=== PATIENT | male | born 1980 | race Caucasian/White ===

== ENCOUNTER 2017-09-10 08:28 | Emergency (ER) | payer MEDICAID, SELFPAY ==
[2017-09-10 08:34] VITALS: BP 113/71; PULSE 125; RESP 14; TEMP 36.9; O2SAT 99; BMI 31.8
--- NOTE | 2017-09-10 10:24 | HMH.EDGENADL ---
ED Disposition Clinical Impression: Injury of biceps brachii muscle Disposition: Home, Self-Care Condition on Discharge: Good Instructions: DI for Acute Pain -- Adult Referrals: Rohith Pereira MD [Primary Care Provider] - - Critical Care Critical Care Time: No Attestation: On 09/10/17, the high probability of a clinically significant, sudden or life threatening deterioration of the following system(s) required my full and direct attention, intervention and personal management. The time I documented below is in addition to time spent performing reported procedures but includes the following listed in this critical care notation. Medical Decision Making Vital Signs: 09/10/17 08:34 Temperature 98.5 F Temperature Source Oral Pulse Rate [Left Brachial] 125 H Respiratory Rate 14 Blood Pressure [Left Arm] 113/71 Blood Pressure Mean [Left Arm] 85 Blood Pressure Source [Left Arm] Automatic Cuff Blood Pressure Position [Left Arm] Sitting 02 Sat by Pulse Oximetry 99 Oxygen Delivery Method Room Air Orders (Tests/Meds): ED MEDICATIONS Discontinued Medications Generic Name Dose Route Start Last Admin Trade Name Freq PRN Reason Stop Dose Admin Ketorolac Tromethamine 60 mg 09/10/17 10:42 Toradol 60mg/2ml Vial IM 09/10/17 10:43 ONCE ONE - Rogelio Inquiry Pt receiving controlled substance: No (patient requested, I declined) Rogelio was queried for this patient: No Medical Decision Making Narrative: Toradol given, with little relief. Note he is NOT allergic to Toradol as he had x3 on without rash. He says he will returjn for Dr rashard anguiano. Declined muscle relaxer. General Adult HPI - General Chief complaint: PAIN Stated complaint: AO 09/03/17 right shoulder/neck Mode of Arrival: Ambulatory Limitations: No Limitations Description of Symptoms (Recalled from ER Triage Doc. 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 PT WAS SEEN AT [facility] [place] [facility] ON THE AND GIVEN SCRIPT FOR MUSCLE RELAXERS, AND PAIN MEDICATION. ADVISES PAIN IS WORSE - History of Present Illness Onset (ago): day(s) (7) Location: neck, upper extremity Radiation: neck Severity: moderate Severity scale (1-10): 7 Quality: aching, sharp Consistency: constant Relieving factors: immobilization Exacerbating factors: movement Associated symptoms: denies other symptoms Treatments prior to arrival: other (Hydrocodone and cyclobenzaprine per [place] [facility], he is here for refill) - Related Data Allergies Allergy/AdvReac Type Severity Reaction Status Date / Time diclofenac [DICLOFENAC] Allergy Unknown I-RASH Unverified 08/28/17 14:47 ketorolac [KETOROLAC] Allergy Unknown I-RASH Unverified 08/28/17 14:47 morphine [MORPHINE] Allergy Unknown MAKES ME Unverified 08/28/17 14:47 RED Penicillins [PENICILLINS] Allergy Unknown I-RASH Unverified 08/28/17 14:47 [facility] History Medical History: Denies:: Cancer, Diabetes Mellitus Type 1, Diabetes Mellitus Type 2, MRSA Amputation: No Fractures: No - *Social History Smoking Status: Former smoker Smoking End Date: 2016 Alcohol Intake: never - Psychiatric History Expresses thoughts of harming self/others: None Suicide Plan Description: No Plan ROS Obtained: Yes All systems reviewed & no additional complaints except - Musculoskeletal Reports joint pain, Reports limited joint movement, Reports neck pain (pain right shoulder at posterior but most significant over biceps tendon) - Neurologic Reports other (denies numbness or weakness reflexes wnl rue) Physical Exam - General General appearance: alert, in no apparent distress - Chest Chest inspection: Present: normal inspection, tenderness - Respiratory Respiratory exam: Present: normal lung sounds bilaterally - Cardiovascular Cardiovascular exam: Present: regular rate - Abdominal Exam Abdominal exam: Present: soft - Expanded Upper Extremity Exam *
--- NOTE | 2017-09-10 10:29 | ED_ITS ---
ED Disposition Clinical Impression: Injury of biceps brachii muscle Disposition: Home, Self-Care Condition on Discharge: Good Instructions: DI for Acute Pain -- Adult Referrals: Rohith Pereira MD [Primary Care Provider] - - Critical Care Critical Care Time: No Attestation: On 09/10/17, the high probability of a clinically significant, sudden or life threatening deterioration of the following system(s) required my full and direct attention, intervention and personal management. The time I documented below is in addition to time spent performing reported procedures but includes the following listed in this critical care notation. Medical Decision Making Vital Signs: 09/10/17 08:34 Temperature 98.5 F Temperature Source Oral Pulse Rate [Left Brachial] 125 H Respiratory Rate 14 Blood Pressure [Left Arm] 113/71 Blood Pressure Mean [Left Arm] 85 Blood Pressure Source [Left Arm] Automatic Cuff Blood Pressure Position [Left Arm] Sitting 02 Sat by Pulse Oximetry 99 Oxygen Delivery Method Room Air Orders (Tests/Meds): ED MEDICATIONS Discontinued Medications Generic Name Dose Route Start Last Admin Trade Name Freq PRN Reason Stop Dose Admin Ketorolac Tromethamine 60 mg 09/10/17 10:42 Toradol 60mg/2ml Vial IM 09/10/17 10:43 ONCE ONE - Rogelio Inquiry Pt receiving controlled substance: No (patient requested, I declined) Rogelio was queried for this patient: No Medical Decision Making Narrative: Toradol given, with little relief. Note he is NOT allergic to Toradol as he had x3 on without rash. He says he will returjn for Dr rashard anguiano. Declined muscle relaxer. General Adult HPI - General Chief complaint: PAIN Stated complaint: AO 09/03/17 right shoulder/neck Mode of Arrival: Ambulatory Limitations: No Limitations Description of Symptoms (Recalled from ER Triage Doc. 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 PT WAS SEEN AT [facility] ON THE AND GIVEN SCRIPT FOR MUSCLE RELAXERS, AND PAIN MEDICATION. ADVISES PAIN IS WORSE - History of Present Illness Onset (ago): day(s) (7) Location: neck, upper extremity Radiation: neck Severity: moderate Severity scale (1-10): 7 Quality: aching, sharp Consistency: constant Relieving factors: immobilization Exacerbating factors: movement Associated symptoms: denies other symptoms Treatments prior to arrival: other (Hydrocodone and cyclobenzaprine per [place] [facility], he is here for refill) - Related Data Allergies Allergy/AdvReac Type Severity Reaction Status Date / Time diclofenac [DICLOFENAC] Allergy Unknown I-RASH Unverified 08/28/17 14:47 ketorolac [KETOROLAC] Allergy Unknown I-RASH Unverified 08/28/17 14:47 morphine [MORPHINE] Allergy Unknown MAKES ME Unverified 08/28/17 14:47 RED Penicillins [PENICILLINS] Allergy Unknown I-RASH Unverified 08/28/17 14:47 [facility] History Medical History: Denies:: Cancer, Diabetes Mellitus Type 1, Diabetes Mellitus Type 2, MRSA Amputation: No Fractures: No - *Social History Smoking Status: Former smoker Smoking End Date: 2016 Alcohol Intake: never - Psychiatric History Expresses thoughts of harming self/others: None Suicide Plan Description: No Plan ROS Obtained: Yes All systems re
[2017-09-10 11:14] VITALS: BP 110/69; PULSE 115; RESP 18; O2SAT 97
--- NOTE | 2017-09-21 13:18 | PC.NURSE ---
Toradol medication is being debited manually per pharmacy. Medication was given IM per Lexi Chairez RN.
== END 2017-09-10 11:16 | disposition home or self-care (01) ==
PROVIDERS: Emergency Provider Family Medicine; Family Provider Emergency Medicine; PCP Emergency Medicine
DX: S46.201A Unspecified injury of muscle, fascia and tendon of other parts of biceps, right arm, initial encounter (principal); Z87.891 Personal history of nicotine dependence; X50.1XXA Overexertion from prolonged static or awkward postures, initial encounter; Z88.0 Allergy status to penicillin; Z88.6 Allergy status to analgesic agent
CPT/HCPCS: 96372; 99282; 99283

== ENCOUNTER 2019-02-26 15:30 | Emergency (ER) | payer MEDICAID, SELFPAY ==
[2019-02-26 15:32] VITALS: BMI 31.9
--- NOTE | 2019-02-26 15:32 | XR_ITS ---
XR hand RT min 3V HISTORY: pain ITS.REASON: CAUGHT IN A RACHET STRAP ORDERING PHYSICIAN: Rohith Webster MD PATIENT AGE: 38 years COMPARISON: None FINDINGS: No fracture or dislocation. No lytic or blastic change. There is normal mineralization.. The joint spaces are well-preserved. No significant degenerative/arthritic changes. No erosive changes evident.. IMPRESSION: Negative, no acute finding
[2019-02-26 15:40] VITALS: BP 122/72; PULSE 92; RESP 18; TEMP 36.7; O2SAT 96; BMI 27.1
--- NOTE | 2019-02-26 15:41 | XR_ITS ---
XR finger RT min 2V CLINICAL INDICATION: Posttraumatic pain ITS.REASON: pain ORDERING PHYSICIAN: Rohith Webster MD PATIENT AGE: 38 years Comparison: None FINDINGS: No obvious fracture or dislocation is evident. There are 2 faint densities along the dorsal and proximal aspect of the distal phalanx which could represent a foreign body or a been a bone fragment. These measures approximately 1 mm each.. Otherwise negative. IMPRESSION: 2 small densities along the dorsal and proximal aspect of the distal phalanx of the second digit which could be due to either small bony fragments or foreign bodies
[2019-02-26 16:17] VITALS: BP 117/72; PULSE 84; O2SAT 95
--- NOTE | 2019-02-26 16:39 | HMH.EDEXTP ---
ED Disposition Clinical Impression: Laceration of finger Disposition: Home, Self-Care Condition on Discharge: Good Instructions: DI for Laceration Repair -- Finger Referrals: Rohith Pereira MD [Primary Care Provider] - Time of Disposition: 17:18 - Critical Care Critical Care Time: No Attestation: On 02/26/19, the high probability of a clinically significant, sudden or life threatening deterioration of the following system(s) required my full and direct attention, intervention and personal management. The time I documented below is in addition to time spent performing reported procedures but includes the following listed in this critical care notation. Medical Decision Making - Medical Records Medical records reviewed: Yes: I reviewed the patient's medical records. - Rogelio Inquiry Pt receiving controlled substance: No Rogelio was queried for this patient: No Vital Signs: 02/26/19 15:40 02/26/19 16:17 02/26/19 17:04 Temperature 98.1 F Temperature Source Oral Pulse Rate [Right Brachial] 92 H 84 82 Respiratory Rate 18 Blood Pressure [Right Arm] 122/72 117/72 129/73 Blood Pressure Mean [Right Arm] 88 87 91 Blood Pressure Source [Right Arm] Automatic Cuff Automatic Cuff Automatic Cuff Blood Pressure Position [Right Arm] Sitting Sitting Sitting 02 Sat by Pulse Oximetry 96 95 96 Oxygen Delivery Method Room Air Room Air Room Air - Lab Data Lab results reviewed: Yes: I reviewed the patient's lab results. Orders (Tests/Meds): ED MEDICATIONS Discontinued Medications Generic Name Dose Route Start Last Admin Trade Name Freq PRN Reason Stop Dose Admin Tetanus/Diphtheria Toxoids 0.5 ml 02/26/19 16:39 Tenivac 0.5ml Syringe IM 02/26/19 16:40 .ONCE ONE ORDERS Category Date Time Status XR finger RT min 2V Stat Exams 02/26/19 15:41 Taken - Physician Consults Physician Consulted: melisa Time: 17:18 Reason -: Pt condition, Surgical Eval/Care Comment/Response: call surgery team in Extremity Problem HPI - General Chief complaint: Extremity Injury, Upper Stated complaint: LACERATION Time Seen by Provider: 02/26/19 16:39 Mode of Arrival: Ambulatory Source of Information: Patient Limitations: No Limitations Description of Symptoms (Recalled from ER Triage Doc. by RN): right hand lac to index finger and pain to palm of hand - History of Present Illness HPI Narrative: distal right index finger lac, just prox to dip joint to nail bed margin. no numbness no paralysis - Related Data Home Medications Medication Instructions Recorded Confirmed No Known Home Medications 12/18/17 12/18/17 Allergies Allergy/AdvReac Type Severity Reaction Status Date / Time diclofenac [DICLOFENAC] Allergy Unknown I-RASH Unverified 08/28/17 14:47 ketorolac [KETOROLAC] Allergy Unknown I-RASH Unverified 08/28/17 14:47 morphine [MORPHINE] Allergy Unknown MAKES ME Unverified 08/28/17 14:47 RED Penicillins [PENICILLINS] Allergy Unknown I-RASH Unverified 08/28/17 14:47 [facility] History - Hepatitis A Screen Drug use history?: No High risk sexual behaviors?: No History of sexually transmitted infection?: No Currently employed?: No Childcare worker?: No Do you have indoor plumbing?: Yes Do you have electricity?: Yes Attestation statement:: This patient has been screened for Hepatitis A risk factors. I have reviewed the patient's past medical history: Yes Medical History: Denies:: Cancer, Diabetes Mellitus Type 1, Diabetes Mellitus Type 2, MRSA Amputation: No Fractures: No - Social History Smoking Status: Former smoker Alcohol Intake: never ROS Obtained: Yes All systems reviewed & no additional complaints - Constitutional Constitutional: Denies fever(s) - Cardiovascular Cardiovascular: Denies chest pain at rest, Denies diaphoresis, Denies dyspnea - Respiratory Respiratory: No chest congestion, No cough - Musculoskeletal Musculoskeletal: Reports joint stiffne
--- NOTE | 2019-02-26 16:43 | ED_ITS ---
ED Disposition Clinical Impression: Laceration of finger Disposition: Home, Self-Care Condition on Discharge: Good Instructions: DI for Laceration Repair -- Finger Referrals: Rohith Pereira MD [Primary Care Provider] - Time of Disposition: 17:18 - Critical Care Critical Care Time: No Attestation: On 02/26/19, the high probability of a clinically significant, sudden or life threatening deterioration of the following system(s) required my full and direct attention, intervention and personal management. The time I documented below is in addition to time spent performing reported procedures but includes the following listed in this critical care notation. Medical Decision Making - Medical Records Medical records reviewed: Yes: I reviewed the patient's medical records. - Rogelio Inquiry Pt receiving controlled substance: No Rogelio was queried for this patient: No Vital Signs: 02/26/19 15:40 02/26/19 16:17 02/26/19 17:04 Temperature 98.1 F Temperature Source Oral Pulse Rate [Right Brachial] 92 H 84 82 Respiratory Rate 18 Blood Pressure [Right Arm] 122/72 117/72 129/73 Blood Pressure Mean [Right Arm] 88 87 91 Blood Pressure Source [Right Arm] Automatic Cuff Automatic Cuff Automatic Cuff Blood Pressure Position [Right Arm] Sitting Sitting Sitting 02 Sat by Pulse Oximetry 96 95 96 Oxygen Delivery Method Room Air Room Air Room Air - Lab Data Lab results reviewed: Yes: I reviewed the patient's lab results. Orders (Tests/Meds): ED MEDICATIONS Discontinued Medications Generic Name Dose Route Start Last Admin Trade Name Freq PRN Reason Stop Dose Admin Tetanus/Diphtheria Toxoids 0.5 ml 02/26/19 16:39 Tenivac 0.5ml Syringe IM 02/26/19 16:40 .ONCE ONE ORDERS Category Date Time Status XR finger RT min 2V Stat Exams 02/26/19 15:41 Taken - Physician Consults Physician Consulted: melisa Time: 17:18 Reason -: Pt condition, Surgical Eval/Care Comment/Response: call surgery team in Extremity Problem HPI - General Chief complaint: Extremity Injury, Upper Stated complaint: LACERATION Time Seen by Provider: 02/26/19 16:39 Mode of Arrival: Ambulatory Source of Information: Patient Limitations: No Limitations Description of Symptoms (Recalled from ER Triage Doc. by RN): right hand lac to index finger and pain to palm of hand - History of Present Illness HPI Narrative: distal right index finger lac, just prox to dip joint to nail bed margin. no numbness no paralysis - Related Data Home Medications Medication Instructions Recorded Confirmed No Known Home Medications 12/18/17 12/18/17 Allergies Allergy/AdvReac Type Severity Reaction Status Date / Time diclofenac [DICLOFENAC] Allergy Unknown I-RASH Unverified 08/28/17 14:47 ketorolac [KETOROLAC] Allergy Unknown I-RASH Unverified 08/28/17 14:47 morphine [MORPHINE] Allergy Unknown MAKES ME Unverified 08/28/17 14:47 RED Penicillins [PENICILLINS] Allergy Unknown I-RASH Unverified 08/28/17 14:47 [facility] History - Hepatitis A Screen Otoniel
[2019-02-26 17:04] VITALS: BP 129/73; PULSE 82; O2SAT 96
[2019-02-26 17:29] VITALS: BP 126/66; PULSE 65; RESP 18; TEMP 36.6; O2SAT 100
== END 2019-02-26 17:30 | disposition home or self-care (01) ==
PROVIDERS: Emergency Provider Emergency Medicine; PCP Emergency Medicine
DX: S61.210A Laceration without foreign body of right index finger without damage to nail, initial encounter (principal); W45.8XXA Other foreign body or object entering through skin, initial encounter; Z88.0 Allergy status to penicillin; Z87.891 Personal history of nicotine dependence; Z23 Encounter for immunization
CPT/HCPCS: 12001; 73130; 73140; 90471; 90714; 99283

== ENCOUNTER → 2019-04-30 14:02 | Outpatient (CLI) | payer MEDICAID, SELFPAY ==
[2019-04-30 16:47] LABS: Amphetamine/Metha Screen,Urine Negative ng/mL (<1000); Barbiturates Screen,Urine Negative ng/mL (<200); Benzodiazepines Screen,Urine Negative ng/mL (<200); Cannabinoid Screen,Urine Positive ng/mL (<50); Cocaine Screen,Urine Negative ng/mL (<300); Methadone Screen,Urine Negative ng/mL (<300); Opiate Screen,Urine Positive ng/mL (<300); Phencyclidine Screen,Urine Negative ng/mL (<25)
== END ==
PROVIDERS: Visit Provider Emergency Medicine
DX: Z79.899 Other long term (current) drug therapy (principal)
CPT/HCPCS: 80305

== ENCOUNTER → 2019-05-20 13:56 | Outpatient (CLI) | payer MEDICAID, SELFPAY ==
[2019-05-20 15:21] LABS: Amphetamine/Metha Screen,Urine Negative ng/mL (<1000); Barbiturates Screen,Urine Negative ng/mL (<200); Benzodiazepines Screen,Urine Negative ng/mL (<200); Cannabinoid Screen,Urine Negative ng/mL (<50); Cocaine Screen,Urine Negative ng/mL (<300); Methadone Screen,Urine Negative ng/mL (<300); Opiate Screen,Urine Positive ng/mL (<300); Phencyclidine Screen,Urine Negative ng/mL (<25)
== END ==
PROVIDERS: Visit Provider Emergency Medicine
DX: M19.90 Unspecified osteoarthritis, unspecified site (principal)
CPT/HCPCS: 80305

== ENCOUNTER → 2019-05-21 08:44 | Outpatient (CLI) | payer MEDICAID, SELFPAY ==
--- NOTE | 2019-05-21 08:49 | XR_ITS ---
PROCEDURE: XR SHOULDER RT MIN 2V CLINICAL INDICATION: right shoulder pain [id number] [id number] [id number] from 01/07/2014 FINDINGS: No fracture, dislocation, lytic change, or blastic change evident. No significant degenerative change IMPRESSION: No acute findings. Dictated by: Alton Norton MD 05/21/2019 18:21 Electronically signed by Alton Norton MD in [place] 05/21/2019 18:21
== END ==
PROVIDERS: PCP Emergency Medicine; Visit Provider Orthopaedic Surgery
DX: M25.511 Pain in right shoulder (principal)
CPT/HCPCS: 73030

== ENCOUNTER 2019-05-21 10:02 | Outpatient (RCR) | payer MEDICAID, SELFPAY | END 2019-05-21 10:15 | disposition home or self-care (01) | LOC: OT 10:02 | PROVIDERS: Visit Provider Orthopaedic Surgery | DX: G56.01 Carpal tunnel syndrome, right upper limb (principal) | CPT/HCPCS: 97763 ==

== ENCOUNTER → 2019-07-07 14:03 | Outpatient (POV) | payer MEDICAID, SELFPAY | PROVIDERS: Visit Provider Specialist | DX: R20.2 Paresthesia of skin (principal); M79.642 Pain in left hand; M79.641 Pain in right hand | CPT/HCPCS: 95886; 95908 ==

== ENCOUNTER → 2019-07-18 13:56 | Outpatient (CLI) | payer MEDICAID, SELFPAY ==
[2019-07-18 14:58] LABS: Amphetamine/Metha Screen,Urine Negative ng/mL (<1000); Barbiturates Screen,Urine Negative ng/mL (<200); Benzodiazepines Screen,Urine Negative ng/mL (<200); Cannabinoid Screen,Urine Negative ng/mL (<50); Cocaine Screen,Urine Negative ng/mL (<300); Methadone Screen,Urine Negative ng/mL (<300); Opiate Screen,Urine Positive ng/mL (<300); Phencyclidine Screen,Urine Negative ng/mL (<25)
== END ==
PROVIDERS: Visit Provider Emergency Medicine
DX: Z79.899 Other long term (current) drug therapy (principal)
CPT/HCPCS: 80305